=== PATIENT | male | born 1960 | race Caucasian/White ===

== ENCOUNTER 2017-02-22 17:55 | Emergency (ER) | END 2017-02-22 19:09 | disposition left against medical advice (07) | DX: Z53.21 Procedure and treatment not carried out due to patient leaving prior to being seen by health care provider (principal) ==

== ENCOUNTER 2017-02-23 15:42 | Inpatient (IN) | payer OTHER ==
[~2017-02-23] VITALS: Ht 182.9 cm; Wt 133.0 kg
[2017-02-23] MEDS ORDERED: NACL 0.9% 3 ML SYG IV SCH (16:30)
[2017-02-23] MEDS ORDERED: DOCUSATE SODIUM 100 MG CAP PO PRN (16:30)
[2017-02-23] MEDS ORDERED: MAGNESIUM HYDROXIDE 30ML CUP PO PRN (16:30)
[2017-02-23] MEDS ORDERED: HYDROCODONE/APAP (5/325) TAB PO PRN (16:30)
[2017-02-23] MEDS ORDERED: ONDANSETRON 4 MG INJ IV PRN (16:30)
[2017-02-23] MEDS ORDERED: ONDANSETRON 4 MG TAB PO PRN (16:30)
[2017-02-23 17:11] VITALS: BP 111/69; PULSE 81; RESP 18
[2017-02-23 17:14] VITALS: Ht 182.9 cm; Wt 133.0 kg
[2017-02-23] MEDS ORDERED: INSULIN ASPART [NOVOLOG] 3 ML PEN SC SCH (18:00)
[2017-02-23] MEDS ORDERED: GLUCAGON 1 MG INJ IM PRN (18:00)
[2017-02-23] MEDS ORDERED: GLUCOSE GEL 15 GRAM TUBE BUCCAL PRN (18:00)
[2017-02-23] MEDS ORDERED: DEXTROSE 50% 50 ML SYRINGE IV PRN ×2 (18:00)
[2017-02-23] MEDS ORDERED: GLUCOSE GEL 15 GRAM TUBE PO PRN ×2 (18:00)
[2017-02-23] MEDS: ACETAMINOPHEN 325 MG TAB PO PRN (18:08)
--- NOTE | 2017-02-23 18:25 | HP ---
DATE OF ADMISSION: 02/23/2017 CHIEF COMPLAINT: This is the first [facility] admissions for this 56-year-old gentleman admitted with chief complaint of weakness, fatigue, and not feeling well determined to be secondary to acute renal failure as an outpatient. HISTORY OF PRESENT ILLNESS: Mr. Xiao is a 56-year-old gentleman who had taken a trip abroad got sick during his trip and for 10 days he has not been feeling well. Also had been having fair amount of diarrhea, eventually, nausea and vomiting and was not able to hold down any food. The patient was seen and the patient was obviously dehydrated and the patient had laboratory values which were compatible with acute renal failure with creatinine in the 10 range and BUN in the 70 range, and the potassium being normal. The patient subsequently was referred to the emergency room with [facility] and after consultation with the ER physician plan was the patient will be hydrated and admitted. However, the patient was feeling quite ill and was told the wait would be for several hours. The patient opted to go home and continue to try oral fluids and was seen by myself again the following morning, his BUN had come down from 70 to 50, however, his creatinine was still in the 5-6 range, at 5.5. Other lab at 6.1, potassium currently being little bit higher than it had been before, instead of 5 it was 5.4, and patient was admitted for treatment of acute renal failure. PAST MEDICAL HISTORY: In terms of Mr. Xiao's prior history he has primarily had diabetes mellitus which is currently being treated both with insulin and oral agents. He is also on medications for hypertension. Does have hyperlipidemia and coronary artery disease. Has chronic lower extremity cellulitis and edema. MEDICATIONS: He had been taking the following medications: 1. Allopurinol 100 mg 2 tabs a day. 2. Aspirin 81 mg a day. 3. Atorvastatin 40 mg a day. 4. Lasix 20 mg a day. 5. Glipizide 10 mg 2 tablets daily. 6. Humalog insulin sliding scale, as well as 10-20 units before meals, and 27 units of Lantus at bedtime. 7. Lisinopril 20 mg twice a day. 8. He was taking some vitamins. 9. Metformin 850 twice a day with meals. 10. Metoprolol 50 mg twice a day. 11. Protonix 40 mg a day. 12. He was taking red rice yeast and on top of that, as well as niacin and omega-3 occasionally. 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 ALLERGIES: HE IS NOT ALLERGIC TO ANY MEDICATIONS, AT LEAST NOT TO HIS KNOWLEDGE. PRIOR MEDICAL PROCEDURES: Stent put in twice for coronary artery disease. Also had issues with his lower extremities with chronic cellulitis. Also has had issue with his chronic back lumbar spine requiring epidurals in the past. Other than that had a he is working daily, he is functioning and in general seems to be relatively healthy under those circumstances. SOCIAL HISTORY: Patient is , has 6 children, and over 30 grandchildren. He does not smoke. Rarely drinks alcoholic beverages. He drinks some coffee. He is employed and usually has no difficulty sleeping at night, other than when he is ill. FAMILY HISTORY: Both parents are . Father age 52, rheumatic fever complications. Mother 82, had an ND and was also diabetic. One sibling of a heart issues. Two sisters are in good health. There is a family history of diabetes and heart, as well as cancer, hypertension and stroke. REVIEW OF SYSTEMS: HEENT: Currently does have a headache. CARDIORESPIRATORY: Denies any chest pain or shortness of breath. GASTROINTESTINAL: No melena or hematemesis. GENITOURINARY: Currently at the time of admission, he has been drinking phenomenal amount of fluid. Has urgency and frequency. MUSCULOSKELETAL: Positive for back and arthritic problems. NEUROPSYCHIATRIC: Unremarkable. GENERAL: Patient currently since he has had this illness with nausea, vomiting, and diarrhea has subsequently developed a cough and other symptoms. Sore throat possibly secondary to another infection, may be a viral syndrome. PHYSICAL EXAMINATION: VITAL SIGNS: Patient's blood pressure the day of admissions, blood pressure was 120/70, pulse was 78 and regular on beta rudy, temperature 98, weight 294 pounds, and height 6 feet. GENERAL APPEARANCE: The patient was noted to be a well-developed and obviously overweight male, alert and cooperative, in no apparent acute distress. On the day of admission, however, did appear to be uncomfortable. Oriented to time, place, and person. HEAD, EARS, EYES, AND NOSE: Head was atraumatic. Tympanic membranes were unremarkable. Nose was negative. Mouth was unremarkable. Mucous membranes were moist at the time of this particular exam. Fair oral hygiene was noted. EYES: Pupils were equal, reactive to light and accommodation. Fundi were benign. NECK: Was supple without any rigidity. Trachea was midline. Thyroid was unremarkable. Neck veins were flat. Carotid pulses were equal. BACK: Back exam was unremarkable. CHEST: Chest was symmetrical. BREAST AND AXILLARY EXAM: Did not reveal any masses. LUNGS: Clear to percussion and auscultation. Few scattered rhonchi were noted. HEART: PMI is 5th intercostal space at the midclavicular line. Regular sinus rhythm was noted. No significant murmurs, rubs, gallops being elicited. ABDOMEN: Soft. Good bowel sounds were noted. No significant organomegaly masses or tenderness. GENITOURINARY: Not done on this exam, but within the year with unremarkable. RECTAL AND PROSTATIC EXAM: Was done by urologist recently. EXTREMITIES: Did not reveal any clubbing, edema, or cyanosis. Some mild chronic erythema was noted. Trace edema. Good DP noted. Peripheral pulses were physiologic. SKIN: Skin was moist and warm without any eruptions. No obvious lymphadenopathy was noted. NEUROLOGIC: Neurologic exam was grossly intact. IMPRESSION: 1. Acute renal failure probably secondary to dehydration and gastroenteritis. 2. Diabetes mellitus type 2, insulin dependent. 3. Hypertension. 4. Hyperlipidemia. 5. Coronary artery disease status post coronary artery stent placements. 6. Possible new viral syndrome. DISCUSSION: Review of laboratory and other data to date is CBC was normal at least 2 days ago. His electrolytes other than a borderline potassium at this point, were normal other than a CO2 which was 20, which is somewhat low. His glucose today was 220, BUN 50, creatinine 5.5, calcium was somewhat low, and his liver function tests were totally normal. Patient will be admitted for IV fluid hydration, renal consult with Dr. Kristofer Mitchell who has been notified of patient's eventual admission and other appropriate measures. Hopefully patient will respond as he did with initial creatinine of 10 and now is 5.5, with further fluid hydration. Hopefully will return close to baseline, which for this patient is 1. CONDITION: On admission again in stable, but guarded in view of his multiple problems. Dictated By: Valdez Mccartney MD /livia/anna marie /Document#: [id number]
[2017-02-23] MEDS: SOD CHLORIDE 0.45% 1,000 ML IV SCH (18:55)
[2017-02-23] MEDS: INSULIN ASPART [NOVOLOG] 3 ML PEN SC SCH ×2 (18:57→20:32)
--- NOTE | 2017-02-23 19:17 | RADRPT ---
PROCEDURE: XR Chest. CLINICAL INDICATION: Cough TECHNIQUE: Single AP portable chest. COMPARISON: No prior new Chest x-ray FINDINGS: The cardiomediastinal silhouette is within normal limits of size. The lungs are clear without pleur al effusion or focal consolidation. No pneumothorax. The osseous structures and soft tissues are unr emarkable. IMPRESSION: 1. No evidence for active cardiopulmonary disease. RPTAT:AAJJ Licha Watson Physician Date Time Electronically viewed and signed by Licha Watson Physician on 02/23/2017 19:17 PER/
[2017-02-23 19:28] LABS: PROTEIN/CREAT RATIO 4.02 RATIO
[2017-02-23 19:50] VITALS: BP 150/79; RESP 18
[2017-02-23 20:18] LABS: BASOPHILS % 0.3 % (0.0-2.0); EOSINOPHILS # 0.4 10^3/ul (0.0-0.5); EOSINOPHILS % 6.9 % (0.0-7.0); HEMATOCRIT 37.4 % (42.0-52.0); HEMOGLOBIN 12.9 g/dl (14.0-18.0); LYMPHOCYTES # 1.6 10^3/ul (0.8-2.9); LYMPHOCYTES % 27.1 % (15.0-51.0); MEAN CORPUSCULAR HEMOGLOBIN 30.6 pg (29.0-33.0); MEAN CORPUSCULAR HGB CONC 34.5 g/dl (32.0-37.0); MEAN CORPUSCULAR VOLUME 88.8 fl (82.0-101.0); MEAN PLATELET VOLUME 9.8 fl (7.4-10.4); MONOCYTE # 0.5 10^3/ul (0.3-0.9); MONOCYTES % 8.3 % (0.0-11.0); NEUTROPHILS % 57.1 % (39.0-77.0); PLATELET COUNT 136 10^3/UL (140-415); RED BLOOD COUNT 4.21 10^6/ul (4.70-6.10); RED CELL DISTRIBUTION WIDTH 13.5 % (11.5-14.5); WHITE BLOOD COUNT 5.9 10^3/ul (4.8-10.8)
[2017-02-23 20:27] LABS: INR 1.01; PARTIAL THROMBOPLASTIN TIME 27.4 Sec (25.0-35.0); PROTIME 13.3 Sec (12.2-14.2)
[2017-02-23] MEDS: FAMOTIDINE 20 MG TAB PO SCH (20:28)
[2017-02-23] MEDS: METOPROLOL 25 MG TAB PO SCH (20:29)
[2017-02-23 20:32] LABS: ALBUMIN 4.1 g/dl (3.3-4.9); ALBUMIN/GLOBULIN RATIO 1.24; BILIRUBIN,INDIRECT 0.4 mg/dl (0-1.1); BILIRUBIN,TOTAL 0.4 mg/dl (0.2-1.3); CALCIUM 7.7 mg/dl (8.4-10.2); CREATININE 5.18 mg/dl (0.61-1.24); POTASSIUM 4.7 mmol/L (3.5-5.1); TOTAL PROTEIN 7.4 g/dl (6.1-8.1)
[2017-02-23] MEDS: ZOLPIDEM 5 MG TAB PO PRN (20:34)
[2017-02-23] MEDS: ACCU-CHEK XX SCH (20:45)
[2017-02-23] MEDS ORDERED: INSULIN GLARGINE [LANtus] 3 ML PEN SC SCH (21:00)
--- NOTE | 2017-02-24 00:40 | CONS ---
DATE OF ADMISSION: 02/23/2017 DATE OF CONSULTATION: 02/23/2017 Thank you, Dr. Mccartney, for asking me to participate in the medical management of this patient. REASON FOR CONSULTATION: Acute renal failure. HISTORY OF PRESENT ILLNESS: This 56-year-old man was in his usual state of health until 8 days ago. While traveling in [place], he became ill with nausea, vomiting, and diarrhea. The patient was unable to keep any fluids in his stomach. He had persistent vomiting. He had diarrhea. The diarrhea has improved. He denies any blood in his stool. He denies fever or chills. The patient has visited [place] before. He was there last year and had a similar illness that only lasted 3 days instead of 8 days. The patient has a history of type 2 diabetes mellitus. He is on both insulin and oral medication. The patient was taking lisinopril prior to getting ill. The patient had laboratory tests done by Dr. Mccartney 2 days ago and was found to have an elevated serum creatinine of 10.2 with a BUN of 70. The patient was told to come to the emergency room here at [facility]. However, the wait was too long and the patient left before being seen. The patient had repeat laboratory tests done today. His creatinine today was 5.5 with a BUN of 50. The patient said he was able to drink a lot of fluid yesterday. The patient has no prior history of kidney disease. A serum creatinine in done by Dr. Mccartney in November of this year was 1.0. PAST MEDICAL HISTORY: Remarkable for hypertension, coronary artery disease. PREVIOUS SURGERY: Left vein stripping. REVIEW OF SYSTEMS: The patient has had some cough, with some greenish sputum. He denies any chest pain, or shortness of breath. He has been urinating without a problem. MEDICATION: Some of which was discontinued include the following, metoprolol, both long-acting and short-acting insulin. PHYSICAL EXAMINATION: GENERAL: At this time, he is well-developed man, in no apparent distress. VITAL SIGNS: Temperature 99, pulse of 81, respirations 18, blood pressure 111/69, O2 sat 97 percent on room air. HEENT: Head normocephalic. Eyes, extraocular muscles intact. Nose and mouth are normal. NECK: Supple. No neck vein distention. LUNGS: Clear to auscultation. HEART: Regular rhythm. No murmurs, gallops, or rubs. ABDOMEN: Soft, nontender. No masses or megaly. EXTREMITIES: Trace nonpitting edema. He does have some dilated varicose veins on the left upper leg. NEUROLOGIC: Grossly intact. IMPRESSION: 1. Acute renal failure. This patient presents now with a history of an acute gastroenteritis. He became dehydrated. His renal function done on labs 2 days ago showed an elevated serum creatinine of 10.2 and a BUN of 70. The patient had prior to this, normal renal function. I suspect the patient became severely dehydrated with his acute gastroenteritis. He may have suffered some acute tubular necrosis along with the dehydration. The patient has been urinating. He is feeling better. 2. Acute gastroenteritis seems to be resolving due to traveler's diarrhea. 3. History of type 2 diabetes mellitus. 4. Hypertension. 5. Coronary artery disease. PLAN: 1. Start IV fluids. 2. Diet as tolerated. 3. Check urine electrolytes, urinalysis, urine/protein creatinine ratio. Consider renal ultrasound if renal function does not continue to improve. Dictated By: Kristofer Mitchell MD /livia/janet /Document#: [id number]
[2017-02-24] MEDS: ACETAMINOPHEN 325 MG TAB PO PRN ×3 (01:59→20:15)
[2017-02-24 02:00] VITALS: BP 159/65; RESP 18
[2017-02-24] MEDS: ACCU-CHEK XX SCH ×5 (02:00→19:55)
[2017-02-24] MEDS: SOD CHLORIDE 0.45% 1,000 ML IV SCH ×4 (04:19→23:33)
[2017-02-24] MEDS: PANTOPRAZOLE (EC) 40 MG TAB PO SCH (06:06)
[2017-02-24 06:45] LABS: BASOPHILS % 0.4 % (0.0-2.0); EOSINOPHILS # 0.4 10^3/ul (0.0-0.5); EOSINOPHILS % 8.5 % (0.0-7.0); HEMATOCRIT 35.8 % (42.0-52.0); HEMOGLOBIN 12.1 g/dl (14.0-18.0); LYMPHOCYTES # 1.8 10^3/ul (0.8-2.9); LYMPHOCYTES % 34.4 % (15.0-51.0); MEAN CORPUSCULAR HEMOGLOBIN 30.2 pg (29.0-33.0); MEAN CORPUSCULAR HGB CONC 33.8 g/dl (32.0-37.0); MEAN CORPUSCULAR VOLUME 89.3 fl (82.0-101.0); MEAN PLATELET VOLUME 9.5 fl (7.4-10.4); MONOCYTE # 0.4 10^3/ul (0.3-0.9); MONOCYTES % 8.5 % (0.0-11.0); NEUTROPHILS % 47.8 % (39.0-77.0); PLATELET COUNT 113 10^3/UL (140-415); POSITIVE DIFF @See below; RED BLOOD COUNT 4.01 10^6/ul (4.70-6.10); RED CELL DISTRIBUTION WIDTH 13.6 % (11.5-14.5); WHITE BLOOD COUNT 5.2 10^3/ul (4.8-10.8)
[2017-02-24 07:06] LABS: ALBUMIN 3.5 g/dl (3.3-4.9); ALBUMIN/GLOBULIN RATIO 1.29; BILIRUBIN,INDIRECT 0.6 mg/dl (0-1.1); BILIRUBIN,TOTAL 0.6 mg/dl (0.2-1.3); CALCIUM 7.5 mg/dl (8.4-10.2); CREATININE 4.02 mg/dl (0.61-1.24); MAGNESIUM 1.2 mg/dl (1.7-2.5); PHOSPHORUS 3.2 mg/dl (2.5-4.9); POTASSIUM 5.3 mmol/L (3.5-5.1); TOTAL PROTEIN 6.2 g/dl (6.1-8.1)
[2017-02-24 07:19] LABS: T3 UPTAKE 47.9 % (23.5-40.5)
[2017-02-24 07:33] LABS: THYROID STIMULATING HORMONE 2.42 MIU/L (0.465-4.680)
[2017-02-24] MEDS ORDERED: INSULIN ASPART [NOVOLOG] 3 ML PEN SC SCH ×4 (08:00→17:55)
[2017-02-24 08:24] VITALS: BP 139/84; RESP 18
[2017-02-24] MEDS ORDERED: LACTATED RINGER'S 500 ML IV ONE (09:00)
--- NOTE | 2017-02-24 09:16 | PN ---
Date/Time of Note Date/Time of Note DATE: 02/24/17 TIME: 09:12 Assessment/Plan VTE Prophylaxis VTE Prophylaxis Intervention: heparin Lines/Catheters IV Catheter Type (from [facility]): Peripheral IV Urinary Cath still in place: No Assessment/Plan Problems: (1) Acute gastroenteritis Status: Acute Comment: Patient is stabilizing on his own as his body is dealing with this. Unfortunately led to a profound state severe dehydration. With this he has had complications. (2) Dehydration, severe Status: Acute Comment: This is resolving although I still believe he is a bit dehydrated. We did give him a single fluid bolus and recheck his BUN and creatinine closely. Is my opinion he does need to spend 1 more day in the hospital. (3) Acute renal failure Status: Acute Comment: This is partially due to the dehydration also to the effects of acute gastroenteritis. He is resolving rapidly nicely from a serum creatinine of approximately 10 now down to 4.02 and steady improvement. As noted above getting given some fluids and recheck his labs later today and again in the morning. Patient demonstrates further improvement he should be able to be followed as an outpatient. Qualifiers: Acute renal failure type: with acute tubular necrosis Qualified Code: N17.0 - Acute renal failure with tubular necrosis (4) Obesity (BMI 30-39.9) Status: Chronic Comment: He has been counseled especially in light of his known diabetes. He will be on a calorie restriction diet here essentially self enforced due to dietary yarsanism restrictions (5) Diabetes mellitus type 2 in obese Status: Chronic Comment: He is on a basal bolus multiple daily injection regimen. His outpatient management demonstrated A1c higher than we normally would like. This is partially due to some dietary noncooperation. This is a consideration to use a drug such as Tradjenta in this gentleman as an outpatient (6) Hyperlipidemia associated with type 2 diabetes mellitus Status: Chronic Comment: Continue statin therapy. No other evidence of drug intolerance (7) Essential hypertension Status: Chronic Comment: Continue on his outpatient regimen. His renal functions improving a believe will be able to continue with felipe inhibitors (8) Coronary artery disease Status: Chronic Comment: This is noted but fortunately quiescent. No changes in therapeutics or regimen need to be undertaken no direct intervention needs to be undertaken Qualifiers: Coronary Disease-Associated Artery/Lesion type: [place] artery [place] vs. transplanted heart: [place] heart Associated angina: without angina Qualified Code: I25.10 - Coronary artery disease involving [place] coronary artery of [place] heart without angina pectoris (9) Gastroesophageal reflux disease Status: Chronic Comment: He is on both proton pump inhibitor and an H2 receptor rudy. Qualifiers: Esophagitis presence: without esophagitis Qualified Code: K21.9 - Gastroesophageal reflux disease without esophagitis (10) History of heart artery stent Status: Chronic Comment: Noted. This is successful and operational Subjective 24 Hr Interval Summary Free Text/Dictation Patient was sitting up in chair performing morning prayers. Constitutional: no complaints Respiratory: no complaints Cardiovascular: no complaints Gastrointestinal: no complaints (Reports improved.) Genitourinary: no complaints (Not producing much urine yet.) Musculoskeletal: back pain (Chronic without change) Exam/Review of Systems Vital Signs Vitals Vital Signs Date Time Temp Pulse Resp B/P Pulse Ox O2 Delivery O2 Flow Rate FiO2 02/24/17 08:24 98.3 68 18 139/84 96 02/23/17 17:11 Room Air Intake and Output 02/23/17 02/23/17 02/24/17 15:00 23:00 07:00 Intake Total 1335 ml Output Total 3 ml Balance 1332 ml Exam Constitutional: alert, oriented Neck: non-tender, supple Respiratory: clear to auscultation, normal air movement Cardiovascular: nl pulses, regular rate and rhythm Gastrointestinal: nl liver, spleen, non-tender, soft Results Result Diagram: 02/24/17 0529 02/24/17 0528 Results 24 hrs Laboratory Tests Test 02/23/17 16:45 02/23/17 18:11 02/23/17 19:07 02/23/17 20:27 Urine Random Creatinine 69.51 Urine Random Sodium 39 Urine Protein/Creatinine Ratio 4.02 Urine Total Protein 280.0 H Bedside Glucose 244 H 191 White Blood Count 5.9 Red Blood Count 4.21 L Hemoglobin 12.9 L Hematocrit 37.4 L Mean Corpuscular Volume 88.8 Mean Corpuscular Hemoglobin 30.6 Mean Corpuscular Hemoglobin Concent 34.5 Red Cell Distribution Width 13.5 Platelet Count 136 L Mean Platelet Volume 9.8 Neutrophils % 57.1 Lymphocytes % 27.1 Monocytes % 8.3 Eosinophils % 6.9 Basophils % 0.3 Nucleated Red Blood Cells % 0.0 Neutrophils # (Manual) 3 Lymphocytes # 1.6 Monocytes # 0.5 Eosinophils # 0.4 Basophils # 0.0 Nucleated Red Blood Cells # 0.0 Prothrombin Time 13.3 Prothrombin Time Ratio 1.0 INR International Normalized Ratio 1.01 Activated Partial Thromboplast Time 27.4 Sodium Level 140 Potassium Level 4.7 Chloride Level 102 Carbon Dioxide Level 21 Anion Gap 22 H Blood Urea Nitrogen 48 H Creatinine 5.18 H Glucose Level 232 H Calcium Level 7.7 L Total Bilirubin 0.4 Direct Bilirubin 0.00 Indirect Bilirubin 0.4 Aspartate Amino Transf (AST/SGOT) 15 Alanine Aminotransferase (ALT/SGPT) 27 Alkaline Phosphatase 61 Total Protein 7.4 Albumin 4.1 Globulin 3.30 H Albumin/Globulin Ratio 1.24 Test 02/24/17 01:52 02/24/17 05:28 02/24/17 05:29 02/24/17 08:56 Bedside Glucose 164 189 Sodium Level 140 Potassium Level 5.3 H Chloride Level 105 Carbon Dioxide Level 20 L Anion Gap 20 H Blood Urea Nitrogen 43 H Creatinine 4.02 #H Glucose Level 184 Calcium Level 7.5 L Phosphorus Level 3.2 Magnesium Level 1.2 L Total Bilirubin 0.6 Direct Bilirubin 0.00 Indirect Bilirubin 0.6 Aspartate Amino Transf (AST/SGOT) 14 L Alanine Aminotransferase (ALT/SGPT) 26 Alkaline Phosphatase 50 Total Protein 6.2 # Albumin 3.5 Globulin 2.70 Albumin/Globulin Ratio 1.29 Thyroid Stimulating Hormone (TSH) 2.420 Free Thyroxine Index 2.54 Thyroxine (T4) 5.3 L Triiodothyronine (T3) Uptake 47.9 H White Blood Count 5.2 Red Blood Count 4.01 L Hemoglobin 12.1 L Hematocrit 35.8 L Mean Corpuscular Volume 89.3 Mean Corpuscular Hemoglobin 30.2 Mean Corpuscular Hemoglobin Concent 33.8 Red Cell Distribution Width 13.6 Platelet Count 113 L Mean Platelet Volume 9.5 Neutrophils % 47.8 Lymphocytes % 34.4 Monocytes % 8.5 Eosinophils % 8.5 H Basophils % 0.4 Nucleated Red Blood Cells % 0.0 Neutrophils # (Manual) 2 Lymphocytes # 1.8 Monocytes # 0.4 Eosinophils # 0.4 Basophils # 0.0 Nucleated Red Blood Cells # 0.0 Hemoglobin A1c 9.2 H Medications Medications Current Medications Sodium Chloride (1/2 NS) 1,000 ml @ 100 mls/hr Q10H IV Last administered on 04:19; Admin Dose 100 MLS/HR; Start 02/23/17 at 17:30 Ondansetron HCl (Zofran Tab) 4 mg Q6H PRN PO NAUSEA AND/OR VOMITING; Start at 16:30 Ondansetron HCl (Zofran Inj) 4 mg Q6H PRN IV NAUSEA AND/OR VOMITING; Start at 16:30 Acetaminophen (Tylenol Tab) 650 mg Q6H PRN PO PAIN LEVEL 1-3 OR FEVER Last administered on 02/24/17 01:59; Admin Dose 650 MG; Start 02/23/17 at 16:30 Acetaminophen/ Hydrocodone Bitart ([place] (5/325)) 1 tab Q6H PRN PO MODERATE PAIN LEVEL 4-6 Last administered on 02/23/17 21:35; Admin Dose 1 TAB; Start at 16:30 Docusate Sodium (Colace) 100 mg Q12H PRN PO CONSTIPATION; Start 02/23/17 at 16: 30 Magnesium Hydroxide (Milk Of Mag) 30 ml DAILY PRN PO CONSTIPATION; Start at 16:30 Zolpidem Tartrate (Ambien) 5 mg QHS PRN PO SLEEP Last administered on 20:34; Admin Dose 5 MG; Start 02/23/17 at 16:30 Famotidine (Pepcid) 20 mg Q12 PO Last administered on 02/23/17 20:28; Admin Dose 20 MG; Start 02/23/17 at 21:00 Enoxaparin Sodium (Lovenox) 40 mg DAILY SC ; Start 02/24/17 at 09:00 Metoprolol Tartrate (Lopressor) 25 mg BID PO Last administered on 02/23/17 20: 29; Admin Dose 25 MG; Start 02/23/17 at 21:00 Diagnostic Test (Pha) (Accu-Chek) 1 ea 02 XX ; Start 02/24/17 at 02:00 Insulin Glargine (Lantus) 15 unit HS SC Last administered on 02/23/17 20:31; Admin Dose 15 UNIT; Start 02/23/17 at 21:00 Diagnostic Test (Pha) (Accu-Chek) 1 ea 02 XX ; Start 02/24/17 at 02:00 Pantoprazole (Protonix Tab) 40 mg DAILY@06 PO Last administered on 02/24/17t 06 :06; Admin Dose 40 MG; Start 02/24/17 at 06:00 Miscellaneous Information 1 ea NOTE XX ; Start 02/23/17 at 18:00 Glucose (Glutose) 15 gm Q15M PRN PO DECREASED GLUCOSE; Start 02/23/17 at 18:00 Glucose (Glutose) 22.5 gm Q15M PRN PO DECREASED GLUCOSE; Start 02/23/17 at 18: 00 Dextrose (D50w Syringe) 25 ml Q15M PRN IV DECREASED GLUCOSE; Start 02/23/17 at 18:00 Dextrose (D50w Syringe) 50 ml Q15M PRN IV DECREASED GLUCOSE; Start 02/23/17 at 18:00 Glucagon (Glucagen) 1 mg Q15M PRN IM DECREASED GLUCOSE; Start 02/23/17 at 18:00 Glucose 15 gm 15 gm Q15M PRN BUCCAL DECREASED GLUCOSE; Start 02/23/17 at 18:00 Lactated Ringer's (Lr) 500 ml @ 500 mls/hr Q1H ONCE IV ; Start 02/24/17 at 09: 00; Stop 02/24/17 at 09:59; Status MATTHIAS MAS MD Feb 24, 2017 09:16
[2017-02-24] MEDS: FAMOTIDINE 20 MG TAB PO SCH ×2 (09:45→21:23)
[2017-02-24] MEDS: METOPROLOL 25 MG TAB PO SCH ×2 (09:45→21:23)
--- NOTE | 2017-02-24 09:53 | RADRPT ---
PROCEDURE: XR Chest. CLINICAL INDICATION: productive cough TECHNIQUE: PA and lateral views of the chest were obtained COMPARISON: Chest 02/23/2017 FINDINGS: The heart is within normal limits in size. There is no evidence of pulmonary vascular congestion ac lynn lung consolidation pleural effusions and pneumothorax. IMPRESSION: No evidence of acute cardiopulmonary disease. RPTAT:AAJJ Physician Heena Date Time Electronically viewed and signed by Petey Mccarthy Physician on 02/24/2017 09:52 BM/
[2017-02-24] MEDS: INSULIN ASPART [NOVOLOG] 3 ML PEN SC SCH ×5 (09:55→21:00)
--- NOTE | 2017-02-24 12:43 | CONS ---
Date/Time of Note Date/Time of Note DATE: 02/24/17 TIME: 12:40 Assessment/Plan Assessment/Plan Chief Complaint/Hosp Course 1. Acute renal failure due to dehydration and acute tubular necrosis his renal function is improved today. He is responding to IV fluids. 2. Acute gastroenteritis which is resolving 3. Type 2 diabetes mellitus 4. Hypomagnesemia, I will replace magnesium today. 5. Continue current IV fluids. Laboratory tests in the morning. Consider discharge tomorrow if he continues to improve. Problems: Consultation Date/Type/Reason Admit Date/Time Feb 23, 2017 at 16:51 Initial Consult Date 24 HR Interval Summary Free Text/Dictation He is feeling much better today. He is eating and drinking without a problem. Constitutional: improved, no complaints Exam/Review of Systems Vital Signs Vitals Vital Signs Date Time Temp Pulse Resp B/P Pulse Ox O2 Delivery O2 Flow Rate FiO2 02/24/17 08:24 98.3 68 18 139/84 96 02/23/17 17:11 Room Air Intake and Output 02/23/17 02/23/17 02/24/17 15:00 23:00 07:00 Intake Total 1335 ml Output Total 3 ml Balance 1332 ml Exam Constitutional: alert, oriented, well developed Respiratory: clear to auscultation, normal air movement Cardiovascular: regular rate and rhythm Gastrointestinal: non-tender, soft Musculoskeletal: nl extremities to inspection Results Result Diagram: 02/24/17 0529 02/24/17 0528 Results 24 hrs Laboratory Tests Test 02/23/17 16:45 02/23/17 18:11 02/23/17 19:07 02/23/17 20:27 Urine Random Creatinine 69.51 Urine Random Sodium 39 Urine Protein/Creatinine Ratio 4.02 Urine Total Protein 280.0 H Bedside Glucose 244 H 191 White Blood Count 5.9 Red Blood Count 4.21 L Hemoglobin 12.9 L Hematocrit 37.4 L Mean Corpuscular Volume 88.8 Mean Corpuscular Hemoglobin 30.6 Mean Corpuscular Hemoglobin Concent 34.5 Red Cell Distribution Width 13.5 Platelet Count 136 L Mean Platelet Volume 9.8 Neutrophils % 57.1 Lymphocytes % 27.1 Monocytes % 8.3 Eosinophils % 6.9 Basophils % 0.3 Nucleated Red Blood Cells % 0.0 Neutrophils # (Manual) 3 Lymphocytes # 1.6 Monocytes # 0.5 Eosinophils # 0.4 Basophils # 0.0 Nucleated Red Blood Cells # 0.0 Prothrombin Time 13.3 Prothrombin Time Ratio 1.0 INR International Normalized Ratio 1.01 Activated Partial Thromboplast Time 27.4 Sodium Level 140 Potassium Level 4.7 Chloride Level 102 Carbon Dioxide Level 21 Anion Gap 22 H Blood Urea Nitrogen 48 H Creatinine 5.18 H Glucose Level 232 H Calcium Level 7.7 L Total Bilirubin 0.4 Direct Bilirubin 0.00 Indirect Bilirubin 0.4 Aspartate Amino Transf (AST/SGOT) 15 Alanine Aminotransferase (ALT/SGPT) 27 Alkaline Phosphatase 61 Total Protein 7.4 Albumin 4.1 Globulin 3.30 H Albumin/Globulin Ratio 1.24 Test 02/24/17 01:52 02/24/17 05:28 02/24/17 05:29 02/24/17 08:56 Bedside Glucose 164 189 Sodium Level 140 Potassium Level 5.3 H Chloride Level 105 Carbon Dioxide Level 20 L Anion Gap 20 H Blood Urea Nitrogen 43 H Creatinine 4.02 #H Glucose Level 184 Calcium Level 7.5 L Phosphorus Level 3.2 Magnesium Level 1.2 L Total Bilirubin 0.6 Direct Bilirubin 0.00 Indirect Bilirubin 0.6 Aspartate Amino Transf (AST/SGOT) 14 L Alanine Aminotransferase (ALT/SGPT) 26 Alkaline Phosphatase 50 Total Protein 6.2 # Albumin 3.5 Globulin 2.70 Albumin/Globulin Ratio 1.29 Thyroid Stimulating Hormone (TSH) 2.420 Free Thyroxine Index 2.54 Thyroxine (T4) 5.3 L Triiodothyronine (T3) Uptake 47.9 H White Blood Count 5.2 Red Blood Count 4.01 L Hemoglobin 12.1 L Hematocrit 35.8 L Mean Corpuscular Volume 89.3 Mean Corpuscular Hemoglobin 30.2 Mean Corpuscular Hemoglobin Concent 33.8 Red Cell Distribution Width 13.6 Platelet Count 113 L Mean Platelet Volume 9.5 Neutrophils % 47.8 Lymphocytes % 34.4 Monocytes % 8.5 Eosinophils % 8.5 H Basophils % 0.4 Nucleated Red Blood Cells % 0.0 Neutrophils # (Manual) 2 Lymphocytes # 1.8 Monocytes # 0.4 Eosinophils # 0.4 Basophils # 0.0 Nucleated Red Blood Cells # 0.0 Hemoglobin A1c 9.2 H Medications Medications Current Medications Sodium Chloride (1/2 NS) 1,000 ml @ 100 mls/hr Q10H IV Last administered on 04:19; Admin Dose 100 MLS/HR; Start 02/23/17 at 17:30 Ondansetron HCl (Zofran Tab) 4 mg Q6H PRN PO NAUSEA AND/OR VOMITING; Start at 16:30 Ondansetron HCl (Zofran Inj) 4 mg Q6H PRN IV NAUSEA AND/OR VOMITING; Start at 16:30 Acetaminophen (Tylenol Tab) 650 mg Q6H PRN PO PAIN LEVEL 1-3 OR FEVER Last administered on 02/24/17 10:47; Admin Dose 650 MG; Start 02/23/17 at 16:30 Acetaminophen/ Hydrocodone Bitart ([place] (5/325)) 1 tab Q6H PRN PO MODERATE PAIN LEVEL 4-6 Last administered on 02/23/17 21:35; Admin Dose 1 TAB; Start at 16:30 Docusate Sodium (Colace) 100 mg Q12H PRN PO CONSTIPATION; Start 02/23/17 at 16: 30 Magnesium Hydroxide (Milk Of Mag) 30 ml DAILY PRN PO CONSTIPATION; Start at 16:30 Zolpidem Tartrate (Ambien) 5 mg QHS PRN PO SLEEP Last administered on 20:34; Admin Dose 5 MG; Start 02/23/17 at 16:30 Famotidine (Pepcid) 20 mg Q12 PO Last administered on 02/24/17 09:45; Admin Dose 20 MG; Start 02/23/17 at 21:00 Enoxaparin Sodium (Lovenox) 40 mg DAILY SC ; Start 02/24/17 at 09:00 Metoprolol Tartrate (Lopressor) 25 mg BID PO Last administered on 02/24/17 09: 45; Admin Dose 25 MG; Start 02/23/17 at 21:00 Diagnostic Test (Pha) (Accu-Chek) 1 ea 02 XX ; Start 02/24/17 at 02:00 Diagnostic Test (Pha) (Accu-Chek) 1 ea 02 XX ; Start 02/24/17 at 02:00 Pantoprazole (Protonix Tab) 40 mg DAILY@06 PO Last administered on 02/24/17 06 :06; Admin Dose 40 MG; Start 02/24/17 at 06:00 Miscellaneous Information 1 ea NOTE XX ; Start 02/23/17 at 18:00 Glucose (Glutose) 15 gm Q15M PRN PO DECREASED GLUCOSE; Start 02/23/17 at 18:00 Glucose (Glutose) 22.5 gm Q15M PRN PO DECREASED GLUCOSE; Start 02/23/17 at 18: 00 Dextrose (D50w Syringe) 25 ml Q15M PRN IV DECREASED GLUCOSE; Start 02/23/17 at 18:00 Dextrose (D50w Syringe) 50 ml Q15M PRN IV DECREASED GLUCOSE; Start 02/23/17 at 18:00 Glucagon (Glucagen) 1 mg Q15M PRN IM DECREASED GLUCOSE; Start 02/23/17 at 18:00 Glucose (Glutose) 15 gm Q15M PRN BUCCAL DECREASED GLUCOSE; Start 02/23/17 at 18 :00 Insulin Glargine (Lantus) 17 unit HS SC ; Start 02/24/17 at 21:00 DENISE DA SILVA MD Feb 24, 2017 12:43
[2017-02-24] MEDS: ENOXAPARIN 40 MG/0.4 ML SYG SC SCH (13:23)
[2017-02-24 13:41] LABS: CALCIUM 7.8 mg/dl (8.4-10.2); CREATININE 3.83 mg/dl (0.61-1.24); POTASSIUM 4.8 mmol/L (3.5-5.1)
--- NOTE | 2017-02-24 13:51 | RADRPT ---
Vent Rate: 70 bpm RR Interval: 0 msec MO Interval: 154 msec QRS Duration: 92 msec QT Interval: 380 msec QTC Interval: 410 msec P-R-T [place]: 64 - 52 - 51 degrees Normal sinus rhythm Low voltage QRS Borderline ECG Electronically Signed By: Scott Alfaro [id number]
[2017-02-24 14:00] VITALS: BP 155/83; RESP 16
[2017-02-24] MEDS ORDERED: MAGNESIUM SULFATE 3 GM in SOD CHLORIDE 0.9% 100 ML IVPB ONE (14:00)
--- NOTE | 2017-02-24 14:24 | RADRPT ---
PROCEDURE: Renal US. CLINICAL INDICATION: Elevated BUN and creatinine TECHNIQUE: Multiple sonographic images of the kidneys were obtained. The images were reviewed on a PACS workstation. COMPARISON: No prior studies are available for comparison. FINDINGS: The kidneys are well visualized. The right kidney measures 12.7 x 6.1 x 6.3 cm. The left kidney marielle ures 3.4 x 7.9 x 7.3 cm. There are no focal areas of abnormal echogenicity. There is no evidence for obstructive uropathy. The visualized urinary bladder is unremarkable. Bilateral ureteral jets are i dentified. IMPRESSION: Unremarkable renal ultrasound. RPTAT: [facility] Physician Yahir Date Time Electronically viewed and signed by Physician Yahir on 02/24/2017 14:23 /
[2017-02-24 19:15] LABS: ADD UMIC YES; UR ASCORBIC ACID NEGATIVE (NEGATIVE); UR BILIRUBIN (Dip) NEGATIVE (NEGATIVE); UR BLOOD (Dip) NEGATIVE (NEGATIVE); UR CLARITY CLEAR (CLEAR); UR COLOR STRAW (YELLOW); UR GLUCOSE (Dip) 3+ mg/dL (NEGATIVE); UR KETONES (Dip) NEGATIVE (NEGATIVE); UR LEUKOCYTE ESTERASE (Dip) NEGATIVE Leu/ul (NEGATIVE); UR NITRITE (Dip) NEGATIVE (NEGATIVE); UR RBC 1 /HPF (0-5); UR SPECIFIC GRAVITY (Dip) 1.006 (1.003-1.030); UR TOTAL PROTEIN (Dip) 2+ mg/dl (NEGATIVE); UR UROBILINOGEN (Dip) NEGATIVE (NEGATIVE)
[2017-02-24 19:35] VITALS: BP 160/82; RESP 18
[2017-02-24] MEDS ORDERED: INSULIN GLARGINE [LANtus] 3 ML PEN SC SCH (21:00)
[2017-02-25] MEDS: ACCU-CHEK XX SCH ×2 (02:00)
[2017-02-25] MEDS: ZOLPIDEM 5 MG TAB PO PRN (02:31)
[2017-02-25 02:45] VITALS: BP 166/75; RESP 18
[2017-02-25 05:07] LABS: BASOPHILS % 0.4 % (0.0-2.0); EOSINOPHILS # 0.4 10^3/ul (0.0-0.5); EOSINOPHILS % 6.8 % (0.0-7.0); HEMATOCRIT 39.1 % (42.0-52.0); HEMOGLOBIN 13.2 g/dl (14.0-18.0); LYMPHOCYTES # 1.4 10^3/ul (0.8-2.9); LYMPHOCYTES % 24.5 % (15.0-51.0); MEAN CORPUSCULAR HEMOGLOBIN 30.3 pg (29.0-33.0); MEAN CORPUSCULAR HGB CONC 33.8 g/dl (32.0-37.0); MEAN CORPUSCULAR VOLUME 89.7 fl (82.0-101.0); MEAN PLATELET VOLUME 9.6 fl (7.4-10.4); MONOCYTE # 0.5 10^3/ul (0.3-0.9); MONOCYTES % 9.4 % (0.0-11.0); NEUTROPHILS % 58.7 % (39.0-77.0); PLATELET COUNT 120 10^3/UL (140-415); RED BLOOD COUNT 4.36 10^6/ul (4.70-6.10); RED CELL DISTRIBUTION WIDTH 13.3 % (11.5-14.5); WHITE BLOOD COUNT 5.6 10^3/ul (4.8-10.8)
[2017-02-25 05:44] LABS: ALBUMIN 4.4 g/dl (3.3-4.9); ALBUMIN/GLOBULIN RATIO 1.33; BILIRUBIN,INDIRECT 0.6 mg/dl (0-1.1); BILIRUBIN,TOTAL 0.6 mg/dl (0.2-1.3); CALCIUM 8.3 mg/dl (8.4-10.2); MAGNESIUM 1.8 mg/dl (1.7-2.5); POTASSIUM 4.7 mmol/L (3.5-5.1); TOTAL PROTEIN 7.7 g/dl (6.1-8.1)
[2017-02-25] MEDS: PANTOPRAZOLE (EC) 40 MG TAB PO SCH (06:19)
--- NOTE | 2017-02-25 07:46 | PDOCDIS ---
Discharge Instructions DIAGNOSIS Discharge Diagnosis Acute gastroenteritis with severe dehydration; acute kidney injury; morbid obesity; diabetes mellitus type 2; CONDITION Patient Condition: Fair HOME CARE INSTRUCTIONS: Special Diet: Carbohydrate controlled ACTIVITY: Activity Restrictions: Slowly Increase Activity Do not operate Machinery Do not operate Power Tool FOLLOW UP/APPOINTMENTS Follow-up Plan Dr. Lujan in [address] Mccartney in 2 weeks MATTHIAS JIMENEZ MD Feb 25, 2017 07:46
[2017-02-25] MEDS ORDERED: ALLO100T PO (07:51)
[2017-02-25] MEDS ORDERED: ATOR40TA68 PO (07:51)
[2017-02-25] MEDS ORDERED: LISI20TA11 PO (07:51)
[2017-02-25] MEDS ORDERED: METO-448 PO (07:51)
[2017-02-25] MEDS ORDERED: ASPI-664 PO (07:51)
[2017-02-25] MEDS ORDERED: FURO20TA3 PO (07:51)
[2017-02-25] MEDS ORDERED: PANT40TA4 PO (07:51)
[2017-02-25] MEDS ORDERED: GLIP-95 PO (07:51)
--- NOTE | 2017-02-25 07:53 | PDOCDIS ---
Discharge Instructions DIAGNOSIS Discharge Diagnosis Acute gastroenteritis with severe dehydration; acute kidney injury; morbid obesity; diabetes mellitus type 2; CONDITION Patient Condition: Fair HOME CARE INSTRUCTIONS: Special Diet: Carbohydrate controlled ACTIVITY: Activity Restrictions: Slowly Increase Activity Do not operate Machinery Do not operate Power Tool FOLLOW UP/APPOINTMENTS Follow-up Plan Dr. Mccartney in [address] Lujan in 1 week. Do not start Metformin until advised to based on the lab test. Hold furosemide-Lasix for 1 week MATTHIAS JIMENEZ MD Feb 25, 2017 07:53
--- NOTE | 2017-02-25 07:57 | DS ---
Date/Time of Note Date/Time of Note DATE: 02/25/17 TIME: 07:54 Discharge Summary Admission/Discharge Info Admit Date/Time Feb 23, 2017 at 16:51 Discharge Date/Time February 25, 2017 Discharge Diagnosis Acute gastroenteritis with severe dehydration; acute kidney injury; morbid obesity; diabetes mellitus type 2; Patient Condition: Fair Consults Nephrology-Dr. Lujan Procedures Renal ultrasound Hx of Present Illness Mr. Xiao is a 56-year-old gentleman who had taken a trip abroad got sick during his trip and for 10 days he has not been feeling well. Also had been having fair amount of diarrhea, eventually, nausea and vomiting and was not able to hold down any food. The patient was seen and the patient was obviously dehydrated and the patient had laboratory values which were compatible with acute renal failure with creatinine in the 10 range and BUN in the 70 range, and the potassium being normal. The patient subsequently was referred to the emergency room with [facility] and after consultation with the ER physician plan was the patient will be hydrated and admitted. However, the patient was feeling quite ill and was told the wait would be for several hours. The patient opted to go home and continue to try oral fluids and was seen by myself again the following morning, his BUN had come down from 70 to 50, however, his creatinine was still in the 5-6 range, at 5.5. Other lab at 6.1, potassium currently being little bit higher than it had been before, instead of 5 it was 5.4, and patient was admitted for treatment of acute renal failure. Hospital Course 1. Acute renal failure due to dehydration and acute tubular necrosis his renal function is improved today. He is responding to IV fluids. 2. Acute gastroenteritis which is resolving 3. Type 2 diabetes mellitus 4. Hypomagnesemia, I will replace magnesium today. 5. Continue current IV fluids. Laboratory tests in the morning. Consider discharge tomorrow if he continues to improve. 56-year-old male. He had been out of the country traveling developed a severe gastroenteritis with severe dehydration. Please note he was also on Lasix therapeutically. He came in with acute renal insufficiency. With cautious hydration his prerenal state and ATN have steadily improved. He has not had significant fluid and electrolyte shifts only required mild electrolyte corrections. He is now at the point where he is improving steadily that he can be discharged and followed up as an outpatient. His rehabilitation potential is good he has no known communicable diseases he is not a hazard to himself or others he is competent for medical decision-making. Please note that the staff never entered his outpatient medication regimen into the hospital computer system. I am asking him to hold on his metformin until he is advises safe to resume and also hold on his Lasix. Primary Care Provider Valdez Mccartney MD Time spent on discharge: > 30 minutes Pending Labs Laboratory Tests Test 02/24/17 08:56 02/24/17 12:59 02/24/17 13:02 02/24/17 14:31 Bedside Glucose 189mg/dL (70-220) 209mg/dL (70-220) 221mg/dL (70-220) Sodium Level 137mmol/L (135-144) Potassium Level 4.8mmol/L (3.5-5.1) Chloride Level 107mmol/L (97-110) Carbon Dioxide Level 20mmol/L (21-31) Anion Gap 15 (8-16) Blood Urea Nitrogen 38mg/dl (7-20) Creatinine 3.83mg/dl (0.61-1.24) Glucose Level 224mg/dl (70-220) Calcium Level 7.8mg/dl (8.4-10.2) Parathyroid Hormone (Intact) pg/ml (7.5-53.5) Test 02/24/17 17:30 02/24/17 17:45 02/24/17 20:04 02/24/17 21:21 Urine Color STRAW (YELLOW) Urine Clarity CLEAR (CLEAR) Urine pH 7.0 (5.0-9.0) Urine Specific [place] 1.006 (1.003-1.030) Urine Ketones NEGATIVEmg/dL (NEGATIVE) Urine Nitrite NEGATIVEmg/dL (NEGATIVE) Urine Bilirubin NEGATIVEmg/dL (NEGATIVE) Urine Urobilinogen NEGATIVEmg/dL (NEGATIVE) Urine Leukocyte Esterase NEGATIVELeu/ul (NEGATIVE) Urine Microscopic RBC 1/HPF (0-5) Urine Microscopic WBC 1/HPF (0-5) Urine Hemoglobin NEGATIVEmg/dL (NEGATIVE) Urine Glucose 3+mg/dL (NEGATIVE) Urine Total Protein 2+mg/dl (NEGATIVE) Bedside Glucose 145mg/dL (70-220) 186mg/dL (70-220) 176mg/dL (70-220) Test 02/25/17 04:22 White Blood Count 5.610^3/ul (4.8-10.8) Red Blood Count 4.3610^6/ul (4.70-6.10) Hemoglobin 13.2g/dl (14.0-18.0) Hematocrit 39.1% (42.0-52.0) Mean Corpuscular Volume 89.7fl (82.0-101.0) Mean Corpuscular Hemoglobin 30.3pg (29.0-33.0) Mean Corpuscular Hemoglobin Concent 33.8g/dl (32.0-37.0) Red Cell Distribution Width 13.3% (11.5-14.5) Platelet Count 25904^3/UL (140-415) Mean Platelet Volume 9.6fl (7.4-10.4) Neutrophils % 58.7% (39.0-77.0) Lymphocytes % 24.5% (15.0-51.0) Monocytes % 9.4% (0.0-11.0) Eosinophils % 6.8% (0.0-7.0) Basophils % 0.4% (0.0-2.0) Nucleated Red Blood Cells % 0.0/100WBC (0.0-0.0) Neutrophils # (Manual) 310^3/ul (1.7-7.5) Lymphocytes # 1.410^3/ul (0.8-2.9) Monocytes # 0.510^3/ul (0.3-0.9) Eosinophils # 0.410^3/ul (0.0-0.5) Basophils # 0.010^3/ul (0.0-0.1) Nucleated Red Blood Cells # 0.010^3/ul (0.0-0.0) Sodium Level 137mmol/L (135-144) Potassium Level 4.7mmol/L (3.5-5.1) Chloride Level 108mmol/L (97-110) Carbon Dioxide Level 16mmol/L (21-31) Anion Gap 18 (8-16) Blood Urea Nitrogen 35mg/dl (7-20) Creatinine 3.00mg/dl (0.61-1.24) Glucose Level 214mg/dl (70-220) Calcium Level 8.3mg/dl (8.4-10.2) Magnesium Level 1.8mg/dl (1.7-2.5) Total Bilirubin 0.6mg/dl (0.2-1.3) Direct Bilirubin 0.00mg/dl (0.00-0.20) Indirect Bilirubin 0.6mg/dl (0-1.1) Aspartate Amino Transf (AST/SGOT) 19IU/L (15-46) Alanine Aminotransferase (ALT/SGPT) 26IU/L (13-69) Alkaline Phosphatase 66IU/L (42-121) Total Protein 7.7g/dl (6.1-8.1) Albumin 4.4g/dl (3.3-4.9) Globulin 3.30g/dl (1.3-3.2) Albumin/Globulin Ratio 1.33 MATTHIAS JIMENEZ MD Feb 25, 2017 07:57
[2017-02-25] MEDS ORDERED: LACTATED RINGER'S 1,000 ML IV ONE (08:00)
[2017-02-25] MEDS: FAMOTIDINE 20 MG TAB PO SCH (09:07)
[2017-02-25] MEDS: METOPROLOL 25 MG TAB PO SCH (09:08)
[2017-02-25 09:09] VITALS: BP 153/86; RESP 20
[2017-02-25] MEDS: INSULIN ASPART [NOVOLOG] 3 ML PEN SC SCH ×2 (09:11→09:12)
[2017-02-25] MEDS: ENOXAPARIN 40 MG/0.4 ML SYG SC SCH (09:32)
[2017-02-25] MEDS: SOD CHLORIDE 0.45% 1,000 ML IV SCH (09:33)
== END 2017-02-25 11:20 | disposition home or self-care (01) | DRG 684 ==
LOC: MS1 16:51
PROVIDERS: ADMIT Internal Medicine; ATTEND Internal Medicine
DX: N17.0 Acute kidney failure with tubular necrosis (principal); E11.21 Type 2 diabetes mellitus with diabetic nephropathy; E86.0 Dehydration; K52.9 Noninfective gastroenteritis and colitis, unspecified; I25.10 Atherosclerotic heart disease of native coronary artery without angina pectoris; E78.5 Hyperlipidemia, unspecified; I10 Essential (primary) hypertension; B34.9 Viral infection, unspecified; E83.42 Hypomagnesemia; E66.01 Morbid (severe) obesity due to excess calories; Z68.30 Body mass index [BMI] 30.0-30.9, adult; K21.9 Gastro-esophageal reflux disease without esophagitis; Z79.4 Long term (current) use of insulin; Z79.84 Long term (current) use of oral hypoglycemic drugs; Z95.5 Presence of coronary angioplasty implant and graft
CPT/HCPCS: 71010; 71020; 76775; 80048; 80053; 81001; 81003; 82570; 82962; 83036; 83735; 83970; 84100; 84155; 84300; 84436; 84443; 84479; 85025; 85610; 85730; 87070; 87086; 93005; J1650; J1815; J3475; J7120